=== PATIENT | male | born 1945 | race Caucasian/White ===

== ENCOUNTER 2016-10-23 19:41 | Inpatient (IN) | payer MEDICARE ==
[2016-10-23 20:13] LABS: Basophils # (A) 0.1 k/uL (0-0.2); Basophils % (A) 1 %; CH 30.7; CHCM 34.5; Eosinophils # (A) 0.2 k/uL (0-0.7); Eosinophils % (A) 2 %; HCT 45.5 % (39.0-53.0); HDW 2.36; HGB 15.3 gm/dL (13.0-17.5); Luc # (Auto) 0.34; Luc % (Auto) 4; Lymphocytes % (A) 32 %; MCHC 33.6 g/dL (31.0-37.0); MCV 89.3 fL (80.0-100.0); Mean Platelet Volume 7.8; Monocytes # (A) 0.4 k/uL (0-1.0); Monocytes % (A) 5 %; Neutrophils # (A) 5.4 k/uL (1.3-7.7); Neutrophils % (A) 57 %; RDW 14.4 % (11.5-15.5); WBC 9.4 k/uL (3.8-10.6); WBC (Perox) 9.24
[2016-10-23 20:22] LABS: Anion Gap 16 mmol/L; Blood Urea Nitrogen 18 mg/dL (9-20); Calcium 9.3 mg/dL (8.4-10.2); Carbon Dioxide 18 mmol/L (22-30); Chloride 105 mmol/L (98-107); Glucose 138 mg/dL (74-99); Non-African American GFR(MDRD) >60 (>60 ml/min/1.73 sqM); Potassium 3.7 mmol/L (3.5-5.1); Sodium 139 mmol/L (137-145)
[2016-10-23 20:28] LABS: Alcohol 106 mg/dL
--- NOTE | 2016-10-23 21:04 | ED ---
Psych HPI - General Chief Complaint: Psychiatric Symptoms Stated Complaint: Mental Health Time Seen by Provider: 10/23/16 19:41 Source: patient, police, RN notes reviewed Mode of arrival: ambulatory - History of Present Illness Initial Comments: This is a 71-year-old male was brought in by police under petition for evaluation for suicidal ideation and depression. Patient apparently went into his garage and turned his vehicle with a door shot he states he was trying to test his to see if she will come out to turn off. Please recall the patient apparently did have an altercation with police also is brought in handcuffs. He states he did admit to doing stupid thing and does not think he wants her himself at this time. He does admit to drinking alcohol tonight. He denies any prior history of suicidal thoughts or ideation or depression. MD Complaint: suicidal ideation, feels depressed - Related Data Home Medications Medication Instructions Recorded Confirmed No Known Home Medications [No 10/23/16 10/23/16 Known Home Medications] Allergies Allergy/AdvReac Type Severity Reaction Status Date / Time No Known Allergies Allergy Verified 10/23/16 20:21 Review of Systems ROS Statement: Those systems with pertinent positive or pertinent negative responses have been documented in the HPI. ROS Other: All systems not noted in ROS Statement are negative. Past Medical History Past Medical History: No Reported History History of Any Multi-Drug Resistant Organisms: None Reported Past Surgical History: No Surgical Hx Reported Past Psychological History: No Psychological Hx Reported Smoking Status: Never smoker Past Alcohol Use History: Occasional Past Drug Use History: None Reported General Exam - General Exam Comments Initial Comments: This is a well-developed well-nourished awake alert oriented times 3 male Limitations: no limitations General appearance: alert, in no apparent distress Head exam: Present: atraumatic, normocephalic, normal inspection Eye exam: Present: normal appearance, PERRL, EOMI. Absent: scleral icterus, conjunctival injection, periorbital swelling ENT exam: Present: normal exam, mucous membranes moist Neck exam: Present: normal inspection. Absent: tenderness, meningismus, lymphadenopathy Respiratory exam: Present: normal lung sounds bilaterally. Absent: respiratory distress, wheezes, rales, rhonchi, stridor Cardiovascular Exam: Present: normal rhythm, tachycardia, normal heart sounds. Absent: systolic murmur, diastolic murmur, rubs, gallop, clicks GI/Abdominal exam: Present: soft, normal bowel sounds. Absent: distended, tenderness, guarding, rebound, rigid Extremities exam: Present: normal inspection, full ROM, normal capillary refill. Absent: tenderness, pedal edema, joint swelling, calf tenderness Back exam: Present: normal inspection Neurological exam: Present: alert, oriented X3, CN II-XII intact Psychiatric exam: Present: depressed Skin exam: Present: warm, dry, intact, normal color. Absent: rash Course Vital Signs 10/23/16 10/23/16 20:01 23:02 Temperature 99 F Pulse Rate 122 H 55 L Respiratory 20 16 Rate Blood Pressure 199/116 207/105 O2 Sat by Pulse 96 98 Oximetry - Reevaluation(s) Reevaluation #1: 10/23/16 23:03 I did review the petition a clinical certification was filled out by me. Medical Decision Making - Medical Decision Making Patient was evaluated by psychiatric service and will be admitted for inpatient treatment patient does have hypertension and is noncompliant he will be given medication prior to admission. - Lab Data Result diagrams: 10/23/16 20:04 10/23/16 20:04 Lab Results 10/23/16 10/23/16 10/23/16 Range/Units 20:04 20:04 20:04 WBC 9.4 (3.8-10.6) k/uL RBC 5.10 (4.30-5.90) m/uL Hgb 15.3 (13.0-17.5) gm/dL Hct 45.5 (39.0-53.0) % MCV 89.3 (80.0-100.0) fL MCH 30.0 (25.0-35.0) pg MCHC 33.6 (31.0-37.0) g/dL RDW 14.4 (11.5-15.5) % Plt Count 288 (150-450) k/uL Neutrophils % 57 % Lymphocytes % 32 % Monocytes % 5 % Eosinophils % 2 % Basophils % 1 % Neutrophils # 5.4 (1.3-7.7) k/uL Lymphocytes # 3.0 (1.0-4.8) k/uL Monocytes # 0.4 (0-1.0) k/uL Eosinophils # 0.2 (0-0.7) k/uL Basophils # 0.1 (0-0.2) k/uL Carbon Monoxide, Quant (<10.0) % Sodium 139 (137-145) mmol/L Potassium 3.7 (3.5-5.1) mmol/L Chloride 105 (98-107) mmol/L Carbon Dioxide 18 L (22-30) mmol/L Anion Gap 16 mmol/L BUN 18 (9-20) mg/dL Creatinine 1.12 (0.66-1.25) mg/dL Est GFR (MDRD) Af Amer >60 (>60 ml/min/1.73 sqM) Est GFR (MDRD) Non-Af >60 (>60 ml/min/1.73 sqM) Glucose 138 H (74-99) mg/dL Calcium 9.3 (8.4-10.2) mg/dL Urine Opiates Screen Not Detected (NotDetected) Ur Oxycodone Screen Not Detected (NotDetected) Urine Methadone Screen Not Detected (NotDetected) Ur Propoxyphene Screen Not Detected (NotDetected) Ur Barbiturates Screen Not Detected (NotDetected) U Tricyclic Antidepress Not Detected (NotDetected) Ur Phencyclidine Scrn Not Detected (NotDetected) Ur Amphetamines Screen Not Detected (NotDetected) U Methamphetamines Scrn Not Detected (NotDetected) U Benzodiazepines Scrn Not Detected (NotDetected) Urine Cocaine Screen Not Detected (NotDetected) U Marijuana (THC) Screen Not Detected (NotDetected) Serum Alcohol 106 mg/dL 10/23/16 Range/Units 21:55 WBC (3.8-10.6) k/uL RBC (4.30-5.90) m/uL Hgb (13.0-17.5) gm/dL Hct (39.0-53.0) % MCV (80.0-100.0) fL MCH (25.0-35.0) pg MCHC (31.0-37.0) g/dL RDW (11.5-15.5) % Plt Count (150-450) k/uL Neutrophils % % Lymphocytes % % Monocytes % % Eosinophils % % Basophils % % Neutrophils # (1.3-7.7) k/uL Lymphocytes # (1.0-4.8) k/uL Monocytes # (0-1.0) k/uL Eosinophils # (0-0.7) k/uL Basophils # (0-0.2) k/uL Carbon Monoxide, Quant 2.0 (<10.0) % Sodium (137-145) mmol/L Potassium (3.5-5.1) mmol/L Chloride (98-107) mmol/L Carbon Dioxide (22-30) mmol/L Anion Gap mmol/L BUN (9-20) mg/dL Creatinine (0.66-1.25) mg/dL Est GFR (MDRD) Af Amer (>60 ml/min/1.73 sqM) Est GFR (MDRD) Non-Af (>60 ml/min/1.73 sqM) Glucose (74-99) mg/dL Calcium (8.4-10.2) mg/dL Urine Opiates Screen (NotDetected) Ur Oxycodone Screen (NotDetected) Urine Methadone Screen (NotDetected) Ur Propoxyphene Screen (NotDetected) Ur Barbiturates Screen (NotDetected) U Tricyclic Antidepress (NotDetected) Ur Phencyclidine Scrn (NotDetected) Ur Amphetamines Screen (NotDetected) U Methamphetamines Scrn (NotDetected) U Benzodiazepines Scrn (NotDetected) Urine Cocaine Screen (NotDetected) U Marijuana (THC) Screen (NotDetected) Serum Alcohol mg/dL Disposition Clinical Impression: Depression, Suicidal ideation, Hypertension, Noncompliance Disposition: TRANSFER TO PSYCH HOSP/UNIT Condition: Stable Referrals: None,Stated [Primary Care Provider] - 1-2 days
[2016-10-23] MEDS ORDERED: cloNIDine HCL 0.2 MG TAB PO STA (23:01)
[2016-10-23] MEDS ORDERED: LORazepam 2 MG/ML SYRINGE IV STA (23:02)
[2016-10-24] MEDS ORDERED: MAG HYDROX/AL HYDROX/SIMETH 30 ML CUP PO PRN (00:38)
[2016-10-24] MEDS ORDERED: ACETAMINOPHEN TAB 325 MG TAB PO PRN (00:38)
[2016-10-24] MEDS ORDERED: MAGNESIUM HYDROXIDE 2,400 MG/10 ML CUP PO PRN (00:38)
[2016-10-24] MEDS ORDERED: LORazepam 1 MG TAB PO PRN (00:38)
[2016-10-24 01:00] VITALS: BMI 33.2
[2016-10-24] MEDS ORDERED: cloNIDine HCL 0.2 MG TAB PO PRN (01:34)
--- NOTE | 2016-10-24 01:59 | P.MDCNMH ---
History of Present Illness H&P Date: 10/24/16 Chief Complaint: elevated blood pressure 71 year old male with history of elevated blood pressure and possible diabetes mellitus, however he does not take any medications and has no regular OP follow up with PCP due to financial concerns Patient brought in to the hospital by police for evaluation of suicidal ideation. He had a quarrel with his , then took his car into a closed garage and kept it running, he claims that he was trying to get his 's attention, but instead she called the police who he had a confrontation with and eventually was brought into the hospital for evaluation. He admits to poor judgment and that he did a "stupid" thing, he denies any suicidal ideation now or before in the past. he admits to some depressed mood at times though especially when he does not get what he wants. He reports that he was told before that he might have diabetes mellitus which runs in his family but he does not take any medications for that, and admits to elevated blood pressure for which his doctor gave him a pill in the past but he stopped as he could not afford the pill or seeing his doctor anymore. other than that, he describes his health as great, and denies any symptoms of chest pain, headache, trouble breathing, focal neurologic deficits, or any GI bleeding. patient blood pressure was found to be elevated in the ED , and one time dose of 0.2 mg of clonidine was given Review of Systems Constitutional: Patient reports no fever, no chills, no night sweating, no significant weight changes Eyes: Patient reports no visual changes, no eye pain ENT: Patient reports no ear pain, no rhinorrhea, no sore throat Cardiovascular: Patient reports no chest pain, no exertional dyspnea, no peripheral leg edema, no orthopnea, no paroxysmal nocturnal dyspnea Respiratory:Patient reports no cough, no wheezing, no shortness of breath Gastrointestinal: Patient reports no diarrhea, no constipation, no nausea no vomiting, no abdominal pain Genitourinary: Patient reports no dysuria, no hematuria, no changes in urinary habits, no genital lesions, He admits to sometimes a weak stream but denies any hesitancy or interrupted stream Musculoskeletal: Patient reports no muscle pain, no joint pain Psychiatric: Patient reports no changes in mood or memory, no suicidal ideation , no anxiety. admits to depressed mood at times Endocrine: Patient reports no heat intolerance, no cold intolerance, no excessive thirst, no polyuria Neurological: Patient reports no focal neurologic deficits, no weakness, no numbness, no tingling Hem/Lymphatic: Patient reports no bleeding tendency, no bruising, no swollen lymph glands Allergic/Immun: Patient reports no recent allergic reactions Skin: Patient reports no rashes, no pruritis, no ulcers Past Medical History Past Medical History: Diabetes Mellitus, Hypertension, Prostate Disorder History of Any Multi-Drug Resistant Organisms: None Reported Past Surgical History: No Surgical Hx Reported Past Psychological History: No Psychological Hx Reported Smoking Status: Never smoker Past Alcohol Use History: Occasional Past Drug Use History: None Reported - Past Family History Father Family Medical History: Diabetes Mellitus Additional Family Medical History / Comment(s): no CAD Medications and Allergies Home Medications and Allergies Comment(s): patient denies taking any medications at home Home Medications Medication Instructions Recorded Confirmed Type No Known Home Medications [No 10/23/16 10/23/16 History Known Home Medications] Allergies Allergy/AdvReac Type Severity Reaction Status Date / Time No Known Allergies Allergy Verified 10/23/16 20:21 Physical Exam Vitals: Vital Signs Temp Pulse Pulse Resp BP BP Pulse Ox 10/24/16 00:14 97.4 F L 103 H 18 164/100 10/23/16 23:43 189/94 10/23/16 23:02 55 L 16 207/105 98 10/23/16 20:01 99 F 122 H 20 199/116 96 Intake and Output 10/23/16 10/23/16 10/24/16 14:59 22:59 06:59 Other: Weight 90.718 kg 93.446 kg Patient Weight 10/24/16 06:59 Weight 93.446 kg Constitutional: No acute distress, conversant, pleasant Eyes: Anicteric sclerae, moist conjunctiva, no lid-lag Pupils equal round reactive to light ENMT: NC/AT Oropharynx clear, no erythema, exudates poor dentition Neck: Supple, FROM, no masses, or JVD No carotid bruits No thyromegaly Lungs: Clear to auscultation Clear to percussion Normal respiratory effort, no accessory muscle use Cardiovascular: Heart regular in rate and rhythm, but with skipped beats at times slight systolic murmur at the Aortic region non radiating, no gallops, or rubs No peripheral edema Abdominal: Soft Nontender, no guarding, rebound or rigidity Abdomen moving with respiration Normoactive bowel sounds No hepatomegaly, No splenomegaly No palpable mass No abdominal wall hernia noted Skin: Normal temperature, tone, texture, turgor No induration No subcutaneous nodules No rash, lesions No ulcers Extremities: No digital cyanosis No clubbing Pedal pulses intact and symmetrical Radial pulses intact and symmetrical No calf tenderness Psychiatric: Alert and oriented to person, place and time Appropriate affect poor judgment Neuro Muscles Strength 5/5 in all 4 extremities Sensation to light touch grossly present throughout No focal sensory deficits Lymphatics: no palpable cervical or supraclavicular , or inguinal lymph nodes Cranial Nerve Examination - Cranial Nerves Cranial Nerve II- Optic: Intact Cranial Nerve III- Oculomotor: Intact Cranial Nerve IV- Trochlear: Intact Cranial Nerve V- Trigeminal: Intact Cranial Nerve - Abducens: Intact Cranial Nerve VII- Facial: Intact Cranial Nerve VIII- Auditory: Intact Cranial Nerve IX- Glossopharyngeal: Intact Cranial Nerve X- Vagus: Intact Cranial Nerve XI- Accessory: Intact Cranial Nerve XII- Hypoglossal: Intact Results Results: reviewed CBC & Chem 7: 10/23/16 20:04 10/23/16 20:04 Labs: Abnormal Lab Results - Last 24 Hours (Table) 10/23/16 Range/Units 20:04 Carbon Dioxide 18 L (22-30) mmol/L Glucose 138 H (74-99) mg/dL Assessment and Plan (1) Accelerated hypertension Narrative/Plan: asymptomatic no evidence of end organ damage Status: Acute (2) Carbon monoxide exposure Narrative/Plan: CO levels are within normal limits Status: Acute (3) Depressed mood Narrative/Plan: defer to psychiatry management Status: Acute (4) Noncompliance Status: Acute Plan: start the patient on Amlodipine low dose 5 mg daily If blood pressure continues to be elevated, this could be increased to 10 mg . then may be consider adding HCTz for better control if patient turns out to be diabetic , an ACEi could be considered too in addition to the above due to the fact patient is not compliant with medications, I would avoid medications that has rebound effects with abrupt withdrawals (BB, clonidine) Check A1C level further recommendations regarding DM management is pending results of A1C blood glucose monitoring ACHS check EKG due to skipped beats consider OP follow up with PCP, for health maintenance and age appropriate cancer screening DVT PPx , ambulatory and low risk diabetic diet, low sodium diet Thank you for allowing us to participate in the care of this patient. We will continue to follow up closely along with you. Do not hesitate to contact us with questions. Someone can be reached from the [facility] hospitalist group at all hours of the day at [phone]. Time with Patient: Greater than 30
[2016-10-24 02:41] LABS: Cholesterol 208 mg/dL (<200); HDL Cholesterol 54 mg/dL (40-60)
[2016-10-24 06:43] LABS: Glucose,Whole Blood 112 mg/dL (75-99)
[2016-10-24] MEDS ORDERED: amLODIPine 5 MG TAB PO SCH (09:00)
--- NOTE | 2016-10-24 10:44 | P.HP ---
Psychiatric H&P - . H&P Date: 10/24/16 History & Physical: Allergies Allergy/AdvReac Type Severity Reaction Status Date / Time No Known Allergies Allergy Verified 10/23/16 20:21 Vital Signs Temp 98.3 F 10/24/16 06:08 Pulse 79 10/24/16 08:50 Resp 18 10/24/16 08:50 BP 176/89 10/24/16 08:50 Pulse Ox 98 10/23/16 23:02 Intake & Output 10/23/16 10/24/16 10/24/16 18:59 06:59 18:59 Weight 93.446 kg Laboratory Last Values WBC 9.4 k/uL (3.8-10.6) 10/23/16 20:04 RBC 5.10 m/uL (4.30-5.90) 10/23/16 20:04 Hgb 15.3 gm/dL (13.0-17.5) 10/23/16 20:04 Hct 45.5 % (39.0-53.0) 10/23/16 20:04 MCV 89.3 fL (80.0-100.0) 10/23/16 20:04 MCH 30.0 pg (25.0-35.0) 10/23/16 20:04 MCHC 33.6 g/dL (31.0-37.0) 10/23/16 20:04 RDW 14.4 % (11.5-15.5) 10/23/16 20:04 Plt Count 288 k/uL (150-450) 10/23/16 20:04 Neutrophils % 57 % 10/23/16 20:04 Lymphocytes % 32 % 10/23/16 20:04 Monocytes % 5 % 10/23/16 20:04 Eosinophils % 2 % 10/23/16 20:04 Basophils % 1 % 10/23/16 20:04 Neutrophils # 5.4 k/uL (1.3-7.7) 10/23/16 20:04 Lymphocytes # 3.0 k/uL (1.0-4.8) 10/23/16 20:04 Monocytes # 0.4 k/uL (0-1.0) 10/23/16 20:04 Eosinophils # 0.2 k/uL (0-0.7) 10/23/16 20:04 Basophils # 0.1 k/uL (0-0.2) 10/23/16 20:04 Carbon Monoxide, Quant 2.0 % (<10.0) 10/23/16 21:55 Sodium 139 mmol/L (137-145) 10/23/16 20:04 Potassium 3.7 mmol/L (3.5-5.1) 10/23/16 20:04 Chloride 105 mmol/L (98-107) 10/23/16 20:04 Carbon Dioxide 18 mmol/L (22-30) L 10/23/16 20:04 Anion Gap 16 mmol/L 10/23/16 20:04 BUN 18 mg/dL (9-20) 10/23/16 20:04 Creatinine 1.12 mg/dL (0.66-1.25) 10/23/16 20:04 Est GFR (MDRD) Af Amer >60 (>60 ml/min/1.73 sqM) 10/23/16 20:04 Est GFR (MDRD) Non-Af >60 (>60 ml/min/1.73 sqM) 10/23/16 20:04 Glucose 138 mg/dL (74-99) H 10/23/16 20:04 POC Glucose (mg/dL) 112 mg/dL (75-99) H 10/24/16 06:42 POC Glu [employer] ID Inge Sanders 10/24/16 06:42 Calcium 9.3 mg/dL (8.4-10.2) 10/23/16 20:04 Triglycerides 281 mg/dL (<150) H 10/23/16 20:04 Cholesterol 208 mg/dL (<200) H 10/23/16 20:04 LDL Cholesterol, Calc 98 mg/dL (0-99) 10/23/16 20:04 HDL Cholesterol 54 mg/dL (40-60) 10/23/16 20:04 Urine Opiates Screen Not Detected (NotDetected) 10/23/16 20:04 Ur Oxycodone Screen Not Detected (NotDetected) 10/23/16 20:04 Urine Methadone Screen Not Detected (NotDetected) 10/23/16 20:04 Ur Propoxyphene Screen Not Detected (NotDetected) 10/23/16 20:04 Ur Barbiturates Screen Not Detected (NotDetected) 10/23/16 20:04 U Tricyclic Antidepress Not Detected (NotDetected) 10/23/16 20:04 Ur Phencyclidine Scrn Not Detected (NotDetected) 10/23/16 20:04 Ur Amphetamines Screen Not Detected (NotDetected) 10/23/16 20:04 U Methamphetamines Scrn Not Detected (NotDetected) 10/23/16 20:04 U Benzodiazepines Scrn Not Detected (NotDetected) 10/23/16 20:04 Urine Cocaine Screen Not Detected (NotDetected) 10/23/16 20:04 U Marijuana (THC) Screen Not Detected (NotDetected) 10/23/16 20:04 Serum Alcohol 106 mg/dL 10/23/16 20:04 10/24/16 10:24 Identification: Patient is a 71-year-old male who was brought in on a petition by the police due to going into the garage and starting his vehicle with the garage door closed. He hasn't told his he wanted to and when his son arrived he also told his son that he wanted to shoot his and himself. Patient was agitated and uncooperative with the police. History of Present Illness: Patient states that he was trying to get attention from his because he was upset about being unable to fix a stereo. He states that he did not want to and doesn't recall telling his son about shooting himself and his . He states that he had been drinking 4-5 beers yesterday and is uncertain if he drank whiskey or not as he said he poured himself some but doesn't think he drank it. Patient states that they have been looking at [facility] is they're thinking of selling their current home and this has been frustrating as everything they look at is either sold or pending sale he said that they were doing this yesterday and have been at each other recently because of this. He denies that he has been making suicidal gestures over the last 3 days as his reported. He states that his son has all of his guns now which were 3 hunting rifles and one BB pistol. He denies making any statements about suicide and states that he was combative when the police were called but did apologize to them later in the emergency room. He states that he is not currently suicidal, is not really depressed he is just worried about money and finding another home. Patient denies these had any difficulty with his sleep or appetite, denies feeling hopeless helpless or worthless. He states that his mood is good. Patient does not endorse any current or prior auditory or visual hallucinations, paranoid or delusional ideation and no prior history of depression or manic symptoms. Patient denies any prior suicidal ideation and states that he has never attempted suicide. Patient has not seen a physician since he lost his insurance after his group home at the age of 62 and he has in the past been treated for high blood pressure as well as a possible diagnosis of diabetes, patient states he has not been on any medication for a number of years. Past Psychiatric History: Patient denies any prior psychiatric inpatient treatment or outpatient treatment and denies ever having been placed on psychotropic medication for any reason. Past Medical/Surgical History: Patient states he was diagnosed with hypertension in the past and possible diabetes, he denies other medical problems and states he has never had many surgeries. Patient denies any ALLERGIES to any medications. Home Medications Medication Instructions Recorded Confirmed No Known Home Medications [No 10/23/16 10/24/16 Known Home Medications] Family History: Patient denies any history of psychiatric disorders in the family, denies any alcohol or substance use disorders in the family and denies that any family members have completed suicide. Social History: Patient was born and raised in [place] and states that both of his parents are . He has 1 brother and 2 sisters all are alive and all are older than the patient. Patient states he quit school at the 10th grade as at that time his father went blind and he needed to go to work to assist the family. 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 Patient has been 6 times, his first marriage was for several years he was when he was 17 years of age and has 3 children from this marriage. His second marriage lasted 2 years and he has one child from that marriage. Patient's third marriage also lasted for several years and he has one child from that marriage as well. Patient's fourth marriage lasted for 22 years and his in 2003. His fifth marriage lasted for 4-5 years she developed cancer and at the age of 49. He is currently for 4 years his is 67 years of age. Patient states that he owns his own home with his , he has no contact with his 3 oldest children and has little contact with his 2 youngest children. He states that he did pay child support. Patient reports that he is supported on Social Security and states that he does pay his bills with a credit card over the phone. Patient reported no current difficulties in his relationship with his only that they have been having difficulties locating an new home to purchase. Substance Use History: Patient states that he in the last several months has been drinking beer usually one to 2 cans of beer occasionally states that yesterday was not be usual. He states when he was much younger he would drink more but this stopped when he was in his 20s and he states that he hasn't had anything to drink until the last year. Patient denies any current or prior history of drug use and states that he quit smoking 35 years ago. 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 Mental Status:Appearance/Attitude: Patient is dressed in a dirty T-shirt and jeans, makes good eye contact and is cooperative. Behavior: Patient does not display any psychomotor agitation or retardation. Speech/Language: Patient's speech is spontaneous and of normal volume and rhythm and he is coherent. Thought Process: Patient was goal-directed, there is no evidence of circumstantial or tangential thought and no loose associations or flight of ideas. Thought Content: Patient denies any auditory or visual hallucinations no delusions or paranoid ideation were elicited. Patient states that he was trying to get his 's attention yesterday when he shut the door and turned on the car in the garage, he states that he was outside by the time the police came and states that he was not trying to kill himself. He states that recently they have been at each other due to the difficulties in finding another home to purchase. He states that he also was drinking maybe 4-5 beers yesterday states he has been drinking beer more frequently in the last year than he was in the past. Patient denies feeling hopeless, helpless or worthless. Patient denies any current problems with his appetite or sleep. Suicidal/Homicidal Ideation: Patient states that he is not currently suicidal or homicidal and states that he would not commit suicide because he would go to hell. Sensorium/Cognition: Patient is alert and oriented to person, place, and time and patient was given a [place] cognitive assessment, patient had difficulty with the trail making and drawing a cube, he was able to recall only 2 items after 5 minutes out of 5. Patient's score was 27 out of 30 which is in the normal range. Mood/Affect: Patient reports his mood is good and his affect was appropriate. Insight/Judgement: Patient's insight and judgment are fair. Intellectual Functioning: Patient's intellectual functioning appears average. Strength/Weaknesses: Patient has stable housing, supportive /limited coping skills Assessment: Patient presents after attempting to get his 's attention by sitting in the garage and turning on his car with all of the doors to the ground shot, he states this was because they had been having difficulty locating a home to buy, he was frustrated with his inability to repair a stereo and he had been using alcohol. Patient has no prior history of suicidal ideation or attempts, he denies any prior psychiatric history or symptoms of depression. Patient has no evidence of cognitive impairment. Patient has been untreated for a number of years for his height attention and his blood pressures on admission were a systolic at 200 or greater and a diastolic rater than 100. He also has been informed that he possibly could have diabetes and has not been following up with his physician regarding either of these 2 problems. In team treatment meeting sexual assault social worker reported that they've spoken with patient's who stated that there was a history of bipolar disorder in his family, that he has had difficulties dealing with the of his 2 prior wives and that he does make statements about wishing he was wishing he was not here. Admission Diagnoses: Adjustment disorder unspecified Plan: Patient was admitted on a voluntary basis, routine laboratory studies were ordered as well as a hemoglobin A1c and EKG, medical consultation was also requested. Patient was placed on routine observations group and activity therapy were ordered. Patient and I discussed his elevated blood pressure, his use of alcohol as well as his suicide attempt to obtain his 's attention. I spoke with him and said that we would be speaking with his his to obtain further information regarding what has been going on at home and at this time I see no need for any psychotropic medication. We will obtain a consult for dietitian to discuss diet for diabetes and hypertension as well as elevated triglycerides and cholesterol. We'll also have medical consult and return to address these issues with the patient. 10/24/16 11:34
[2016-10-24 12:17] LABS: Hemoglobin A1C 5.6 % (4.2-6.1)
[2016-10-24 12:40] LABS: Glucose,Whole Blood 102 mg/dL (75-99)
[2016-10-24] MEDS ORDERED: amLODIPine 5 MG TAB PO STA (13:59)
--- NOTE | 2016-10-24 14:06 | P.PN ---
Subjective Principal diagnosis: Patient is a 71-year-old male with history of hypertension who has not been on meds recently due to losing insurance and possible prior diabetes mellitus who is admitted for suicidal ideation. We are following him for elevated blood pressures, elevated cholesterol, and elevated blood sugars. Patient seen and examined. He reports no chest pain, shortness of breath, lightheadedness or dizziness, and nausea or vomiting. Objective - Vital Signs Vital signs: Vital Signs Temp 98.3 F 10/24/16 06:08 Pulse 78 10/24/16 13:52 Resp 20 10/24/16 13:52 BP 191/98 10/24/16 13:52 Pulse Ox 95 10/24/16 13:52 Intake & Output 10/23/16 10/24/16 10/24/16 18:59 06:59 18:59 Weight 93.446 kg 93.446 kg - Exam General: non toxic, no distress, appears at stated age, disheveled Derm: no rashes, no lesions Head: atraumatic, normocephalic, symmetric Eyes: EOMI, no lid lag, anicteric sclera ENT: no post nasal drip, no thrush Mouth: no lip lesion, mucus membranes moist Cardiovascular: S1S2 reg, no murmur, positive posterior tibial pulse bilateral, Lungs: CTA bilateral, no rhonchi, no rales , no accessory muscle use Abdominal: soft, nontender to palpation, no guarding, no appreciable organomegaly Ext: no gross muscle atrophy, no edema, no contractures Neuro: CN II-XI grossly intact, no focal neuro deficits Psych: Alert, jovial affect - Labs CBC & Chem 7: 10/23/16 20:04 10/23/16 20:04 Labs: Abnormal Lab Results - Last 24 Hours (Table) 10/23/16 10/23/16 10/24/16 Range/Units 20:04 20:04 06:42 Carbon Dioxide 18 L (22-30) mmol/L Glucose 138 H (74-99) mg/dL POC Glucose (mg/dL) 112 H (75-99) mg/dL Triglycerides 281 H (<150) mg/dL Cholesterol 208 H (<200) mg/dL 10/24/16 Range/Units 12:34 Carbon Dioxide (22-30) mmol/L Glucose (74-99) mg/dL POC Glucose (mg/dL) 102 H (75-99) mg/dL Triglycerides (<150) mg/dL Cholesterol (<200) mg/dL Assessment and Plan Plan: #Accelerated hypertension -Increase Norvasc to 10 mg daily with an additional 5 mg given now -Continue it as needed Catapres -Continue to follow blood pressures #Dyslipidemia -Blood work was obtained after patient had a large fatty meal -Obtain lipid profile fasting in a.m. -Anticipate that patient will likely need statin therapy however prefer accurate baseline labs be obtained prior #Hyperglycemia -Check hemoglobin A1c in a.m. Will need outpatient follow-up with primary care physician Thank you for allowing us to participate in the care of this patient. We will follow peripherally. Do not hesitate to contact us with questions. Someone can be reached from the [facility] hospitalist group at all hours of the day at [phone].
[2016-10-24 15:50] VITALS: RESP 18
[2016-10-24 17:41] LABS: Glucose,Whole Blood 116 mg/dL (75-99)
[2016-10-24 21:37] LABS: Glucose,Whole Blood 146 mg/dL (75-99)
[2016-10-25 06:40] LABS: Glucose,Whole Blood 111 mg/dL (75-99)
[2016-10-25 06:51] VITALS: TEMP 98.1
[2016-10-25] MEDS ORDERED: amLODIPine 10 MG TAB PO SCH (09:00)
[2016-10-25 09:33] VITALS: BP 153/68; PULSE 76
[2016-10-25 09:48] LABS: ALT 35 U/L (21-72); AST 29 U/L (17-59); Alkaline Phosphatase 61 U/L (38-126); Anion Gap 10 mmol/L; Blood Urea Nitrogen 18 mg/dL (9-20); Calcium 9.8 mg/dL (8.4-10.2); Carbon Dioxide 28 mmol/L (22-30); Chloride 103 mmol/L (98-107); Cholesterol 188 mg/dL (<200); Glucose 177 mg/dL (74-99); HDL Cholesterol 60 mg/dL (40-60); Non-African American GFR(MDRD) >60 (>60 ml/min/1.73 sqM); Potassium 4.1 mmol/L (3.5-5.1); Sodium 141 mmol/L (137-145); Total Bilirubin 0.9 mg/dL (0.2-1.3); Total Protein 7.8 g/dL (6.3-8.2)
--- NOTE | 2016-10-25 12:04 | P.PN ---
Subjective Principal diagnosis: confusion Patient is a 71-year-old male with history of hypertension who has not been on meds recently due to losing insurance and possible prior diabetes mellitus who is admitted for suicidal ideation. We are following him for elevated blood pressures, elevated cholesterol, and elevated blood sugars. HgBA1C normal, LDL slightly elevated, BP better controlled. Patient seen and examined. NO chest pain, SOB, JUARES, Feeling well. Wants to follow-up with a PCP in [place] who his sister sees. Objective - Vital Signs Vital signs: Vital Signs Temp 98.1 F 10/25/16 06:51 Pulse 76 10/25/16 08:45 Resp 18 10/25/16 08:45 BP 153/68 10/25/16 08:45 Pulse Ox 95 10/24/16 13:52 Intake & Output 10/24/16 10/25/16 10/25/16 18:59 06:59 18:59 Weight 93.446 kg - Exam General: non toxic, no distress, appears at stated age, disheveled Derm: no rashes, no lesions Head: atraumatic, normocephalic, symmetric Eyes: EOMI, no lid lag, anicteric sclera ENT: no post nasal drip, no thrush Mouth: no lip lesion, mucus membranes moist Cardiovascular: S1S2 reg, no murmur, positive posterior tibial pulse bilateral, Lungs: CTA bilateral, no rhonchi, no rales , no accessory muscle use Abdominal: soft, nontender to palpation, no guarding, no appreciable organomegaly Ext: no gross muscle atrophy, no edema, no contractures Neuro: CN II-XI grossly intact, no focal neuro deficits Psych: Alert, jovial affect - Labs CBC & Chem 7: 10/23/16 20:04 10/25/16 08:38 Labs: Abnormal Lab Results - Last 24 Hours (Table) 10/24/16 10/24/16 10/24/16 Range/Units 12:34 17:31 21:24 Glucose (74-99) mg/dL POC Glucose (mg/dL) 102 H 116 H 146 H (75-99) mg/dL LDL Cholesterol, Calc (0-99) mg/dL 10/25/16 10/25/16 Range/Units 06:38 08:38 Glucose 177 H (74-99) mg/dL POC Glucose (mg/dL) 111 H (75-99) mg/dL LDL Cholesterol, Calc 107 H (0-99) mg/dL Assessment and Plan Plan: #Accelerated hypertension, improved -Prescription for Norvasc 10 mg daily left on chart -Needs PCP to follow-up, he wants [facility] he is unsure of the name but his sister goes there #Dyslipidemia -Much less significant on repeat, however current recommendations are for patient to be on a moderate dose statin if able to tolerate at his age -Prescription for Lipitor 40 mg a left on chart -Again needs follow-up with PCP #Hyperglycemia -Hemoglobin A1c 5.6, no further follow-up needed, continue his low carbohydrate diet at home. Medically stable for discharge. Will need outpatient follow-up with primary care physician Thank you for allowing us to participate in the care of this patient. We will follow peripherally. Do not hesitate to contact us with questions. Someone can be reached from the [facility] hospitalist group at all hours of the day at [phone].
--- NOTE | 2016-10-25 12:20 | P.DS ---
Providers Date of admission: 10/23/16 23:44 Expected date of discharge: 10/25/16 Attending physician: Nikki Gilliland MD Consults: 10/24/16 00:38 Consult Physician Routine Consulting Provider: Bereket Norman Consult Reason/Comments: h and p, eval and tx, r/o metabolic disorder Do you want consulting provider notified?: Yes Primary care physician: Stated None Hospital Course: Discharge Diagnoses: Adjustment disorder, unspecified; hypertension Reason for Admission: Patient is a 71-year-old male who was brought in on a petition by the police after he went into the garage and started his vehicle with the door closed. He had stated that he wanted to and when his son arrived he also told his son that he wanted to shoot his and himself. Patient was agitated and uncooperative with the police. Patient states that he was trying to get the attention of his because he was upset about being unable to fix a stereo. He states that he did not want to and doesn't recall telling his son about shooting himself and his . He had been drinking about 4-5 beers prior to admission and is uncertain if he drank whiskey or not. Patient states he had been frustrated recently as they're thinking about selling their home and had been looking at other homes and they have been sold or pending sale. He denied that he been making suicidal gestures over the last 3 days, however his had reported that he had been talking about it not being worth living, not wanting to be here. He states that his son has now taken all of his hunting rifles and BB pistol out of the house. On admission he denied feeling suicidal and stated that he is not really depressed but is worried about money and finding another home. He also reports that he has been feeling more irritable and frustrated recently but is unable to express why. Patient has not been cared for by a family physician since he lost his insurance and states he has a history of hypertension and possible diabetes. Patient denied feeling hopeless, helpless or worthless and denied any current or prior history of depression, no prior history of suicidal ideation or suicide attempts, no history of manic episodes and no history of psychotic symptoms. Patient has had 2 prior wives and he stated that he has been coping with this fairly well although his was concerned that he still may be having some issues related to their . Patient has no prior psychiatric treatment history or inpatient admission history. Patient states that he had recently over the last year begun using alcohol more frequently as he had not used it for many years he states that when he was much younger he had been drinking more heavily and had decided to stop. Patient reports the most that he had been drinking was 2-3 beers on the weekends with friends but on the day prior to admission he had had 4-5 beers. Hospital Course: Patient was admitted on a voluntary basis, routine laboratory studies were ordered as well as a medical consultation was obtained. Patient was also ordered group and activity therapy. It was discovered that the patient 's blood pressure was elevated and so he was begun on Catapres as needed and then begun on Norvasc 10 mg a day to control his blood pressure. Patient's blood sugar was elevated and monitored he was placed on a diabetic diet and his hemoglobin A1c was found to be 5.6. Patient did not express any further suicidal ideation and states that he had no intention to the other evening and was only attempting to get his 's attention and had been feeling frustrated, irritable and easily angered recently. Patient was not begun on any psychotropic medication once his blood pressure was controlled patient reported feeling much better from a physical standpoint stated he was no longer feeling irritable, was feeling much calmer and was not as angry. He states that he visited with his and she thought he was doing much better as well. Patient states that he feels he has more energy. A dietary consult was obtained to advise the patient and he states he found this helpful. Patient was advised to follow-up with a family physician regarding his blood pressure and to continue monitoring his blood sugars. Discharge Mental Status:Appearance/Attitude: Patient was neatly dressed, neatly groomed made good eye contact and was cooperative. Behavior: Patient did not display any psychomotor agitation or retardation. Speech/Language: Patient's speech is spontaneous and of normal volume and rhythm and he is coherent. Thought Process: Patient is goal-directed, is no evidence of circumstantial or tangential thought and no loose associations or flight of ideas. Thought Content: Patient denies any auditory or visual hallucinations and no delusions or paranoid ideation were elicited. Patient before reports feeling less irritable and angry and states that his energy level has improved. He states that he feels physically much better and reports that he slept well last evening. Patient states that his appetite is good Suicidal/Homicidal Ideation: Patient denies any current suicidal or homicidal ideation and states that what he did with the car was a stupid idea and that he has no wish to . Sensorium/Cognition: Patient is alert and oriented to person, place, time and his memory is grossly intact. Mood/Affect: Patient's mood is pleasant and his affect is appropriate. Insight/Judgement: Patient's insight and judgment are fair. Laboratory Last Values WBC 9.4 k/uL (3.8-10.6) 10/23/16 20:04 RBC 5.10 m/uL (4.30-5.90) 10/23/16 20:04 Hgb 15.3 gm/dL (13.0-17.5) 10/23/16 20:04 Hct 45.5 % (39.0-53.0) 10/23/16 20:04 MCV 89.3 fL (80.0-100.0) 10/23/16 20:04 MCH 30.0 pg (25.0-35.0) 10/23/16 20:04 MCHC 33.6 g/dL (31.0-37.0) 10/23/16 20:04 RDW 14.4 % (11.5-15.5) 10/23/16 20:04 Plt Count 288 k/uL (150-450) 10/23/16 20:04 Neutrophils % 57 % 10/23/16 20:04 Lymphocytes % 32 % 10/23/16 20:04 Monocytes % 5 % 10/23/16 20:04 Eosinophils % 2 % 10/23/16 20:04 Basophils % 1 % 10/23/16 20:04 Neutrophils # 5.4 k/uL (1.3-7.7) 10/23/16 20:04 Lymphocytes # 3.0 k/uL (1.0-4.8) 10/23/16 20:04 Monocytes # 0.4 k/uL (0-1.0) 10/23/16 20:04 Eosinophils # 0.2 k/uL (0-0.7) 10/23/16 20:04 Basophils # 0.1 k/uL (0-0.2) 10/23/16 20:04 Carbon Monoxide, Quant 2.0 % (<10.0) 10/23/16 21:55 Sodium 141 mmol/L (137-145) 10/25/16 08:38 Potassium 4.1 mmol/L (3.5-5.1) 10/25/16 08:38 Chloride 103 mmol/L (98-107) 10/25/16 08:38 Carbon Dioxide 28 mmol/L (22-30) 10/25/16 08:38 Anion Gap 10 mmol/L 10/25/16 08:38 BUN 18 mg/dL (9-20) 10/25/16 08:38 Creatinine 1.08 mg/dL (0.66-1.25) 10/25/16 08:38 Est GFR (MDRD) Af Amer >60 (>60 ml/min/1.73 sqM) 10/25/16 08:38 Est GFR (MDRD) Non-Af >60 (>60 ml/min/1.73 sqM) 10/25/16 08:38 Glucose 177 mg/dL (74-99) H 10/25/16 08:38 POC Glucose (mg/dL) 111 mg/dL (75-99) H 10/25/16 06:38 POC Glu [employer] ID [place] 10/25/16 06:[address] Glu mg/dL 114 mg/dL 10/23/16 20:04 Hemoglobin A1c 5.6 % (4.2-6.1) 10/23/16 20:04 Calcium 9.8 mg/dL (8.4-10.2) 10/25/16 08:38 Total Bilirubin 0.9 mg/dL (0.2-1.3) 10/25/16 08:38 AST 29 U/L (17-59) 10/25/16 08:38 ALT 35 U/L (21-72) 10/25/16 08:38 Alkaline Phosphatase 61 U/L (38-126) 10/25/16 08:38 Total Protein 7.8 g/dL (6.3-8.2) 10/25/16 08:38 Albumin 4.1 g/dL (3.5-5.0) 10/25/16 08:38 Triglycerides 106 mg/dL (<150) 10/25/16 08:38 Cholesterol 188 mg/dL (<200) 10/25/16 08:38 LDL Cholesterol, Calc 107 mg/dL (0-99) H 10/25/16 08:38 HDL Cholesterol 60 mg/dL (40-60) 10/25/16 08:38 TSH 1.270 mIU/L (0.465-4.680) 10/25/16 08:38 Urine Opiates Screen Not Detected (NotDetected) 10/23/16 20:04 Ur Oxycodone Screen Not Detected (NotDetected) 10/23/16 20:04 Urine Methadone Screen Not Detected (NotDetected) 10/23/16 20:04 Ur Propoxyphene Screen Not Detected (NotDetected) 10/23/16 20:04 Ur Barbiturates Screen Not Detected (NotDetected) 10/23/16 20:04 U Tricyclic Antidepress Not Detected (NotDetected) 10/23/16 20:04 Ur Phencyclidine Scrn Not Detected (NotDetected) 10/23/16 20:04 Ur Amphetamines Screen Not Detected (NotDetected) 10/23/16 20:04 U Methamphetamines Scrn Not Detected (NotDetected) 10/23/16 20:04 U Benzodiazepines Scrn Not Detected (NotDetected) 10/23/16 20:04 Urine Cocaine Screen Not Detected (NotDetected) 10/23/16 20:04 U Marijuana (THC) Screen Not Detected (NotDetected) 10/23/16 20:04 Serum Alcohol 106 mg/dL 10/23/16 20:04 Risk Assessment: Patient's risk for self-harm is low, he has a supportive , family; no prior history of suicide attempts, no alcohol or drug use disorder. Discharge Plan: Patient will be discharged to return to live with his , he was encouraged to contact his insurance company to locate a family physician to continue outpatient medical care for his hypertension, elevated lipids as well as to continue monitoring his blood sugar. Patient is not on any current psychotropic medication. Patient does not require followup for counselling. Patient will continue on Norvasc 10mg qday and Lipitor 40mg qday and was given prescriptions for these. patient was encouraged to avoid any alcohol, follow dieticians recommendation and be compliant with his medications. Patient Condition at Discharge: Stable Plan - Discharge Summary New Discharge Prescriptions: New amLODIPine [Norvasc] 10 mg PO DAILY #30 tab Atorvastatin [Lipitor] 40 mg PO DAILY #30 tablet Discharge Medication List Atorvastatin [Lipitor] 40 mg PO DAILY #30 tablet 10/25/16 [Rx] amLODIPine [Norvasc] 10 mg PO DAILY #30 tab 10/25/16 [Rx] Follow up Appointment(s)/Referral(s): None,Stated [Primary Care Provider] - 1-2 days Discharge Disposition: HOME SELF-CARE
[2016-10-25 12:54] LABS: Glucose,Whole Blood 87 mg/dL (75-99)
== END 2016-10-25 14:14 | disposition home or self-care (01) | DRG 882 ==
LOC: EC 19:41 → 3MHU 23:44
PROVIDERS: ADMIT Psychiatry & Neurology Psychiatry; ATTEND Psychiatry & Neurology Psychiatry
DX: F43.20 Adjustment disorder, unspecified (principal); E11.65 Type 2 diabetes mellitus with hyperglycemia; R45.851 Suicidal ideations; E78.00 Pure hypercholesterolemia, unspecified; I10 Essential (primary) hypertension; Z91.19 Patient's noncompliance with other medical treatment and regimen
CPT/HCPCS: 36415; 80048; 80053; 80061; 80306; 80320; 82075; 82375; 83036; 84443; 85025; 93005; 96374; 99285